=== PATIENT | male | born 1995 | race Caucasian/White ===

== ENCOUNTER 2018-02-20 13:21 | Emergency (ER) | payer BC, OTHER ==
[~2018-02-20] VITALS: Ht 182.9 cm; Wt 138.0 kg
[~2018-02-20 13:21] MED LIST: ATR25 PO; SERT-234 PO
[2018-02-20 13:31] VITALS: BP 146/84; TEMP 37.1; Ht 182.9 cm; Wt 138.0 kg
[2018-02-20] MEDS ORDERED: KETOROLAC TROMETHAMINE 60 MG/2 ML VIAL IM STA (13:52)
[2018-02-20] MEDS ORDERED: OMEG10007 PO (13:57)
[2018-02-20] MEDS ORDERED: FENO54TA PO (13:57)
[2018-02-20] MEDS ORDERED: HYDROCODONE/ACETAMIN 5/325MG TAB PO ONE (14:00)
[2018-02-20] MEDS ORDERED: DEXAMETHASONE **PF** INJ 10 MG/ML VIAL IM ONE (14:00)
--- NOTE | 2018-02-20 14:33 | DIAGNOSTIC IMAGING REPORT ---
LUMBAR SPINE 5 VIEWS CLINICAL HISTORY: Low back pain. FINDINGS: 5 views of the lumbar spine are obtained. No prior studies are available for comparison at the time of dictation. The skeletal structures are well mineralized. There is no radiographic evidence of fracture or malalignment. Vertebral body height and alignment are maintained. The transverse and spinous processes are intact. There is no evidence of spondylolysis. The intervertebral disc spaces are well-maintained. The visualized bony pelvis appears intact. There is a nonobstructed abdominal bowel gas pattern. Moderate colonic fecal retention is observed. IMPRESSION: Unremarkable radiographic evaluation of the lumbosacral spine. Electronically signed by: Bassam Monsivais M.D. 02/20/2018 2:32 PM Dictated Date/Time: 02/20/2018 2:31 PM
[2018-02-20] MEDS ORDERED: PRED20TA2 PO (15:00)
[2018-02-20] MEDS ORDERED: HYDR-5688 PO (15:00)
[2018-02-20] MEDS ORDERED: CYCL10TA6 PO (15:00)
[2018-02-20 15:16] VITALS: PULSE 84; O2SAT 98
--- NOTE | 2018-02-20 20:51 | EMERGENCY ROOM VISIT NOTE ---
History First contact with patient: 13:47 Chief Complaint: BACK PAIN Stated Complaint: LOWER BACK PAIN History of Present Illness The patient is a 22 year old male who presents to the Emergency Room with complaints of mid low back pain that began worsening over the past 2 or 3 hours. The patient states that he was taking garbage outside, and when he bent over to pick it up he had immediate pain. The patient does not have radiation of the pain down his legs or into his groin. He does not report numbness or paresthesias. The patient has had back pain in the past, but it typically improves after a few hours. Patient states this is worse than normal, and worsens with standing straight up and other position changes. The patient has not had incontinence. No fevers or chills. He has not taken anything for the pain which she currently rates an 8/10. Review of Systems More than 10 systems were reviewed and otherwise negative with the exception of history of present illness. Past Medical/Surgical History No chronic medical disease Family History No pertinent family history Social History Smoking Status: Never Smoker Housing Status: lives with family Current/Historical Medications Scheduled Cyclobenzaprine Hcl (Flexeril), 10 MG PO TID Fenofibrate (Tricor), Unknown Dose PO DAILY Fish Oil (Belton-3), 1 CAP PO DAILY Prednisone (Prednisone Tab), 2 TAB PO DAILY Scheduled PRN Hydrocodone/Acetaminophen 5MG/325MG (Wilmore 5MG/325MG), 1-2 TABLET PO Q6 PRN for Pain Physical Exam Vital Signs Date Time Temp Pulse Resp B/P (MAP) Pulse Ox O2 Delivery O2 Flow Rate FiO2 02/20/18 15:16 84 20 98 02/20/18 13:31 37.1 83 18 146/84 100 Room Air Physical Exam VITALS: Vitals are noted on the nurse's note and reviewed by myself. Vital signs stable. GENERAL: Well-developed, well-nourished, white male who appears uncomfortable on presentation. He is seated on the emergency department bed leaning forward. He seems uncomfortable with positional changes. Patient is cooperative with the examination. HEAD: Normocephalic atraumatic. NECK: Supple without nuchal rigidity. No lymphadenopathy. No thyromegaly. Cervical spine is nontender. HEART: Regular rate and rhythm without murmurs gallops or rubs. LUNGS: Clear to auscultation bilaterally without wheezes, rales or rhonchi. No retractions or accessory muscle use. ABDOMEN: Positive normal bowel sounds x 4. Soft, nontender, without masses or organomegaly. No guarding or rebound tenderness. MUSCULOSKELETAL: No muscle atrophy, erythema, or edema noted. There is positive lower lumbar spine tenderness roughly in the L3-L4 distribution. The tenderness is midline. There is no paravertebral spasm or SI joint tenderness. Negative straight leg raise bilateral. No saddle paresthesias. Normal patellar reflexes. Medical Decision & Procedures ER Provider Diagnostic Interpretation: LUMBAR SPINE 5 VIEWS CLINICAL HISTORY: Low back pain. FINDINGS: 5 views of the lumbar spine are obtained. No prior studies are available for comparison at the time of dictation. The skeletal structures are well mineralized. There is no radiographic evidence of fracture or malalignment. Vertebral body height and alignment are maintained. The transverse and spinous processes are intact. There is no evidence of spondylolysis. The intervertebral disc spaces are well-maintained. The visualized bony pelvis appears intact. There is a nonobstructed abdominal bowel gas pattern. Moderate colonic fecal retention is observed. IMPRESSION: Unremarkable radiographic evaluation of the lumbosacral spine. Medications Administered Medications (Trade) Dose Ordered Sig/Carmen Route Start Time Stop Time Status Last Admin Dose Admin Dexamethasone Sodium Phosphate (Dexamethasone Inj Pf) 10 mg NOW ONCE IM 02/20/18 14:00 02/20/18 14:01 DC 02/20/18 14:03 10 MG Ketorolac Tromethamine (Toradol Inj) 60 mg NOW STAT IM 02/20/18 13:52 02/20/18 13:53 DC 02/20/18 14:04 60 MG Acetaminophen/ Hydrocodone Bitart (Wil[place] 5/325 Tab) 2 tab NOW ONCE PO 02/20/18 14:00 02/20/18 14:01 DC 02/20/18 14:04 2 TAB ED Course Physical exam and history were performed. Nursing notes, EMR, and Medication List were personally reviewed. Patient appears to have mid low back pain over the past few hours. On examination the patient appears quite uncomfortable, but is without evidence of cauda equina or spinal abscess. He is in obvious discomfort with changes in position. The patient was given 60 mg IM Toradol, 10 mg IM Decadron, and to Wilmore 5/325 mg tablets. X-rays were performed and reviewed by myself and radiology as showing no acute process. On reevaluation the patient was able to lay flat very comfortably in his ER bed. His pain significantly improved. I discussed options of care with the patient and family, and overall feel the patient is well for discharge home. I suspect his symptoms are musculoskeletal in nature and should improve over the next few days. I will give him a short course of Vicodin, Flexeril, and prednisone. The patient is to follow with his primary care physician for further care and management. He was otherwise invited back to the ER with any new, worsening, or concerning symptoms. The chart was completed utilizing [employer] Speech Voice Recognition Software. Grammatical errors, random word insertions, pronoun errors, and incomplete sentences are an occasional consequence of this system due to software limitations, ambient noise, and hardware issues. Any formal questions or concerns about the content, text, or information contained within the body of this dictation should be directly addressed to the provider for clarification. . Medical Decision Differential diagnosis: Etiologies such as musculoskeletal, disc herniation, fracture, aortic disease, metastatic disease, cord compression, discitis, infection, renal colic, gastrointestinal, acute exacerbation of chronic back pain, sciatica, cauda equina, as well as others were entertained. Impression Primary Impression: Midline low back pain Departure Information Dispostion Home / Self-Care Condition GOOD Prescriptions Prednisone (Prednisone Tab) 20 Mg Tab 2 TAB PO DAILY for 5 Days, #10 TAB Prov: Jesse Jennings PA-C 02/20/18 Cyclobenzaprine Hcl (FLEXERIL) 10 Mg Tab 10 MG PO TID for 7 Days, #21 TAB Prov: Jesse Jennings PA-C 02/20/18 Hydrocodone/Acetaminophen 5MG/325MG (Wil[place] 5MG/325MG) Tab 1-2 TABLET PO Q6 Y for Pain, #15 TAB For Initial Treatment Prov: Jesse Jennings PA-C 02/20/18 Forms HOME CARE DOCUMENTATION FORM, IMPORTANT VISIT INFORMATION Patient Instructions My [facility], ED Back Care Tips Additional Instructions You were seen and evaluated today on an emergency basis only. This is not a substitute for, or an effort to provide, complete comprehensive medical care. It is not possible to recognize and treat all injuries or illnesses in a single emergency department visit. For this reason it is recommended that you followup with your primary care physician this week for ongoing care and evaluation. For baseline pain relief you may alternate ibuprofen and acetaminophen every 4 hours for pain control. Take 600 mg ibuprofen (Advil) and then 4 hours later take 1000 mg acetaminophen (Tylenol). Do not take more than 3000 mg acetaminophen in a single day. Wilmore (hydrocodone/acetaminophen) 5/325 mg ONE or TWO by mouth every 6 hours as needed for worsening breakthrough pain. Do not drink or drive on [place]. This medication will likely make you tired. Do not take Wilmore and Tylenol at the same time as both contain acetaminophen. Wilmore may cause constipation. You may wish to take an [id number] stool softener like Colace if this occurs. Flexeril 1 tablet up to 3 times a day as needed for muscle spasms. No driving, working, or alcohol use with Flexeril. Take prednisone as prescribed You are welcome to return to the emergency department anytime with new, worsening, or concerning symptoms.
== END 2018-02-20 15:17 | disposition home or self-care (01) ==
LOC: C.EDB 13:24 → C.EDD 15:17
DX: M54.5 Low back pain (principal)